=== PATIENT | male | born 1965 | race Two or more races ===

== ENCOUNTER → 2020-10-21 | Day surgery (SDC) | payer OTHER ==
[2020-10-21] VITALS (9 sets, daily range): BP systolic 116–131; BP diastolic 68–86
[~2020-10-21] VITALS: Ht 175.3 cm; Wt 90.7 kg
[~2020-10-21] MED LIST: Akten 3.5% 1ml Btl ONE; BSS 15ml BTL ONE; BSS 500ml btl ONE; Carbachol 0.01% Op Soln 1.5ml vial ONE; Cyclopentolate 2% Opth Sol ONE; EPINEPHrine 1mg/1ml Amp ONE; LR 1000ml 1,000 ML IVLG SCH; LR 1000ml ONE; Lidocaine 1% MPF 10mg/ml 5ml ONE; Lidocaine 2% 20mg/ml/Epi 0.005mg/ml 20ml vial ONE; Lidocaine 4% Amp 5ml ONE; Maxitrol Opth Oint 3.5gm ONE; Midazolam 2mg/2ml Inj ONE; Povidone-Iodine 5% opth solution ONE; Sodium Hyaluronate 10 mg/ml 0.85ml ONE; Tetracaine 0.5% Opth 4ml Soln ONE; fentaNYL 100 mcg/2 mL IV ONE; fentaNYL 100 mcg/2 mL IV PRN; prednisoLONE acetate 1% Opth Susp 1ml ONE
[2020-10-21] MEDS: Phenylephrine 10% Opth Soln 5ml RIGHT EYE SCH ×4 (05:53→06:12)
[2020-10-21] MEDS: Diclofenac Sod 0.1% Op Soln RIGHT EYE SCH ×4 (05:53→06:12)
[2020-10-21] MEDS: Ciprofloxacin Opth Soln 5ml RIGHT EYE SCH ×4 (05:53→06:13)
[2020-10-21] MEDS: Cyclopentolate 2% Opth Sol RIGHT EYE SCH ×4 (05:55→06:12)
[2020-10-21] MEDS: Akten 3.5% 1ml Btl RIGHT EYE SCH ×4 (06:29→06:45)
--- NOTE | 2020-10-21 07:04 | Anethesia Preoperative Eval ---
Anesthesia Pre-op PMH/ROS General Date of Evaluation: Oct 21, 2020 Time of Evaluation: 07:01 Anesthesiologist: Chris ASA Score: ASA 2 Mallampati Score Class I : Soft palate, uvula, fauces, pillars visible Class II: Soft palate, uvula, fauces visible Class III: Soft palate, base of uvula visible Class IV: Only hard plate visible Mallampati Classification: Class II Surgeon: Pennie Diagnosis: R eye cataract Surgical Procedure: Cataract extraction Anesthesia History: none Family History: no anesthesia problems Allergies: Coded Allergies: AMOXICILLIN (Verified Allergy, Unknown, 10/17/20) Medications: see eMAR Patient NPO?: Yes Past Medical History Cardiovascular: Reports: arrhythmia - pacemaker in place; Denies: HTN, CAD, MO, valve dz, other Pulmonary: Denies: asthma, COPD, RODRICK, other Gastrointestinal/Genitourinary: Reports: GERD; Denies: CRI, ESRD, other Neurologic/Psychiatric: Denies: dementia, CVA, depression/anxiety, TIA, other Endocrine: Denies: DM, hypothyroidism, steroids, other HEENT: Reports: cataract (L), cataract (R); Denies: glaucoma, [place] (L), [place] (R), other Hematology/Immune: Denies: anemia, DVT, bleeding disorder, other Musculoskeletal/Integumentary: Denies: OA, RA, DJD, DDD, edema, other Other: other - overweight PMH Narrative: as above PSxH Narrative: Pacemaker placement Anesthesia Pre-op Phys. Exam Physician Exam Last Vital Signs Date Time Temp Pulse Resp B/P (MAP) Pulse Ox O2 Delivery O2 Flow Rate FiO2 10/21/20 05:58 Room Air 10/21/20 05:57 98.5 77 18 131/81 97 Constitutional: NAD Neurologic: CN 2-12 intact Cardiovascular: RRR, no M/R/G Respiratory: CTA Gastrointestinal: S/NT/ND Airway Exam Mallampati Score: Class II MO: full Neck: stiff ROM: full Teeth: intact Dentures: no upper, no lower Anesthesia Pre-op A/P Labs see chart Studies Pre-op Studies: EKG - SR Risk Assessment & Plan Assessment: ASA 2 Plan: MAC Status Change Before Surgery: Jaden Green MD Oct 21, 2020 07:04
--- NOTE | 2020-10-21 07:13 | Pre-Procedure Note/Attestation ---
Pre-Procedure Note/Attestation Complete Prior to Procedure Planned Procedure: right Procedure Narrative: Cataract with lens implant Indications for Procedure Pre-Operative Diagnosis: Cataract Attestation I attest that I discussed the nature of the procedure; its benefits; risks and complications; and alternatives (and the risks and benefits of such alternatives), prior to the procedure, with the patient (or the patient's legal appliance service representative). I attest that, if there was a reasonable possibility of needing a blood transfusion, the patient (or the patient's legal appliance service representative) was given the [facility] standardized written summary, pursuant to the Mauricio [place] Blood Safety Act ([place] Health and Safety Code # 1645, as amended). I attest that I re-evaluated the patient just prior to the surgery and that there has been no change in the patient's H&P, except as documented below: Lloyd Casper MD Oct 21, 2020 07:13
--- NOTE | 2020-10-21 08:02 | Immediate Post-Op Evaluation ---
Immediate Post-Op Evalulation Immediate Post-Op Evalulation Procedure: R eye catarct extraction with IOL Date of Evaluation: Oct 21, 2020 Time of Evaluation: 08:01 IV Fluids: 300 Blood Products: none Estimated Blood Loss: none Urinary Output: none Blood Pressure Systolic: 124 Blood Pressure Diastolic: 76 Pulse Rate: 72 Respiratory Rate: 18 O2 Sat by Pulse Oximetry: 99 Temperature (Fahrenheit): 97.5 Pain Score (1-10): 1 Nausea: No Vomiting: No Complications none Patient Status: awake, patent, none Hydration Status: adequate Jaden Perez MD Oct 21, 2020 08:02
--- NOTE | 2020-10-21 08:03 | Operative Note - PDOC ---
Operative Note Operative Note Date of Operation/Procedure: Oct 21, 2020 Chief Complaint: Poor vision Pre-op Diagnosis: Cataract Procedure: Cataract extraction with intraocular lens implant Post-op Diagnosis: Same Post-op Diagnosis: same as pre-op Surgeon: Pennie Family Support Worker: Yadira Anesthesiologist: Chris Anesthesia: MAC Specimen: none Complications: none Condition: stable Estimated Blood Loss: none Drains: none Implant(s) used?: Yes Indications for Procedure Poor vision Description of Procedure See dictated report Lloyd Casper MD Oct 21, 2020 08:03
--- NOTE | 2020-10-21 11:03 | 48 Hour Post Anesthesia Eval ---
Post Anesthesia Evaluation Procedure: R eye catarct extraction with IOL Date of Evaluation: Oct 21, 2020 Time of Evaluation: 11:02 Blood Pressure Systolic: 128 0: 76 Pulse Rate: 68 Respiratory Rate: 18 Temperature (Fahrenheit): 97.8 O2 Sat by Pulse Oximetry: 98 Airway: patent Nausea: No Vomiting: No Pain Intensity: 1 Hydration Status: adequate Cardiopulmonary Status: stable Mental Status/LOC: patient returned to baseline Follow-up Care/Observations: n/a Post-Anesthesia Complications: none Follow-up care needed: ready to discharge Jaden Perez MD Oct 21, 2020 11:03
--- NOTE | 2020-10-21 20:44 | Operative Note - Dictated ---
DATE OF OPERATION: 10/21/2020 SURGEON: Lloyd Casper MD. WELT POCKET MACHINE OPERATOR: None. ANESTHESIA: MAC. 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 PRINCIPAL PROCEDURE: Phacoemulsification with primary implantation of posterior chamber intraocular lens, right eye. DESCRIPTION OF PROCEDURE: The patient was evaluated in my office complaining of gradually decreasing vision, worse in right eye than the left eye. He was found to have central posterior capsular plaque in the right eye. He denies any previous trauma or use of systemic steroids. The risks, benefits, and alternatives of the surgery were discussed. Informed consent was obtained. The patient was therefore brought to the [facility] where the right pupil was dilated and an intravenous line was started. He was brought into the operating room where anesthesia was obtained with topical drops supplemented with intravenous sedation. The right eye was then prepped and draped in usual fashion for intraocular surgery. A clear corneal temporal incision was made in the anterior chamber filled with Shugarcaine and viscoelastic. A continuous tear capsulotomy was accomplished. Hydrodissection was utilized to facilitate phacoemulsification. A two-handed phacoemulsification technique was used to fracture the lens nucleus into quadrants and the segments removed in sequence. The irrigation/aspiration handpiece was then used to remove residual lens cortex and pashto the posterior capsule. Viscoelastic was introduced. An intraocular lens from [employer], model ZCB00, with a power of 14.5 diopters, was folded into the lens insertion cartridge, injected into the posterior chamber of the eye and positioned within the capsular bag. The viscoelastic was removed. The wound was adjusted and then made watertight without sutures. The intraocular pressure was adjusted to normal. One drop of 10% Betadine, one drop of prednisolone acetate, and one drop of Vigamox was placed on the eye. The eye was covered with an eye shield. This completed the procedure. All sponge and needle counts were correct. The patient was taken to the PAR in a good condition, having tolerated the procedure well. Lloyd Casper M.D. DR: Berenice JOB#: [id number] CC: Sudheer Pinon MD;
== END | disposition home or self-care (01) ==
LOC: SUR 05:21
DX: H25.811 Combined forms of age-related cataract, right eye (principal); K21.9 Gastro-esophageal reflux disease without esophagitis; Z95.0 Presence of cardiac pacemaker; E66.3 Overweight; Z68.29 Body mass index [BMI] 29.0-29.9, adult; Z88.1 Allergy status to other antibiotic agents
CPT/HCPCS: 66984; 94003; J0171; J1100; J2250; J2704; J3010; J3370; J7120; U0004; V2632; 94150